=== PATIENT | male | born 1990 | race Two or more races ===

== ENCOUNTER 2019-12-15 15:31 | Emergency (ER) | payer MEDICAID, OTHER ==
[~2019-12-15] VITALS: Ht 175.3 cm; Wt 158.8 kg
[2019-12-15 15:47] VITALS: BP 141/77
[2019-12-15] MEDS ORDERED: KETOROLAC TROMETH 60MG/2ML VIAL IM ONE (16:15)
== END 2019-12-15 16:47 | disposition home or self-care (01) ==
LOC: ER 15:31
DX: M54.5 Low back pain (principal); G89.29 Other chronic pain; I10 Essential (primary) hypertension
CPT/HCPCS: 96372; 99283; J1885

== ENCOUNTER → 2019-12-23 | Emergency (ER) | payer MEDICAID ==
[~2019-12-23] VITALS: Ht 175.3 cm; Wt 149.2 kg
[~2019-12-23] MED LIST: SODIUM CHLORIDE 0.9% 1,000 ML IV ONE
[2019-12-23 18:39] LABS: Basophils # (auto) 0 10 ^3/uL (0-0.2); Basophils % (auto) 0.4 % (0.0-2.0); Eosinophils # (auto) 0 10 ^3/uL (0-0.8); Eosinophils % (auto) 0.3 % (0.0-7.0); Hematocrit 48.2 % (41.0-53.0); Hemoglobin 16.1 g/dL (13.5-17.5); Lymphocytes # (auto) 2.2 10 ^3/uL (0.4-5.4); Lymphocytes % (auto) 34.1 % (10.0-50.0); Mean Corpuscular Hgb Conc. 33.5 g/dL (32.0-36.0); Mean Corpuscular Volume 89.5 fL (80.0-100.0); Monocytes # (auto) 0.5 10 ^3/uL (0-1.3); Monocytes % (auto) 7.7 % (0.0-12.0); Neutrophils # (auto) 3.7 10 ^3/uL (1.6-8.6); Neutrophils % (auto) 57.5 % (37.0-80.0); Nucleated Red Blood Cells % 0.1 %; Platelet Count (auto) 182 10^3/uL (140-450); Red Blood Cells 5.39 10^6/uL (4.5-5.90); Red Cell Distribution Width 14.4 % (11.8-14.3); White Blood Cell 6.5 10^3/uL (4.4-10.8)
[2019-12-23 18:58] LABS: Albumin 3.1 g/dL (3.4-5.0); Anion Gap 7 (5-15); Blood Urea Nitrogen 11 mg/dL (7-18); Calcium 8.6 mg/dL (8.5-10.1); Carbon Dioxide 25 mmol/L (21-32); Chloride 103 mmol/L (98-107); Glucose 104 mg/dL (74-106); Potassium 3.9 mmol/L (3.5-5.1); Sodium 135 mmol/L (136-145)
[2019-12-23 19:00] LABS: Alanine Aminotransferase 85 U/L (16-61); Aspartate Aminotransferase 59 U/L (15-37); BUN/Creatinine Ratio 10.6; GFR African American 108 mL/min; GFR Non-African American 89 mL/min
[2019-12-23 19:04] LABS: Alkaline Phosphatase 96 U/L (45-117); Bilirubin, Total 0.6 mg/dL (0.2-1.0); Total Protein 8.3 g/dL (6.4-8.2)
[2019-12-23 20:00] VITALS: BP 114/83
== END | disposition home or self-care (01) ==
LOC: ER 17:55
DX: J02.0 Streptococcal pharyngitis (principal); J01.00 Acute maxillary sinusitis, unspecified; F17.210 Nicotine dependence, cigarettes, uncomplicated; I10 Essential (primary) hypertension
CPT/HCPCS: 36415; 71045; 80053; 82728; 83605; 84484; 85025; 87040; 87804; 87880; 93005; 99285; J7030; U0003

== ENCOUNTER 2019-12-31 18:06 | Inpatient (IN) | payer MEDICAID ==
[~2019-12-31] VITALS: Ht 175.3 cm; Wt 153.0 kg
[2019-12-31] MEDS ORDERED: SODIUM CHLORIDE 0.9% 1,000 ML IV ONE (18:51)
[2019-12-31] MEDS ORDERED: ACETAMINOPHEN 325 MG TAB PO ONE (19:00)
[2019-12-31 20:48] LABS: Hematocrit 47.8 % (41.0-53.0); Mean Corpuscular Hemoglobin 29.5 pg (28.0-32.0); Mean Corpuscular Hgb Conc. 33.5 g/dL (32.0-36.0); Mean Corpuscular Volume 88.1 fL (80.0-100.0); Platelet Count (auto) 224 10^3/uL (140-450); Red Blood Cells 5.42 10^6/uL (4.5-5.90); White Blood Cell 10.5 10^3/uL (4.4-10.8)
[2019-12-31 20:52] LABS: Band Neutrophils % (manual) 0; Basophils % (manual) 0 (0.0-2.0); Eosinophils % (manual) 0 (0-7); Metamyelocytes % 0; Myelocytes % 0; Promyelocytes % 0
[2019-12-31 21:03] LABS: Albumin 2.8 g/dL (3.4-5.0); Calcium 8.2 mg/dL (8.5-10.1); Potassium 3.9 mmol/L (3.5-5.1)
[2019-12-31 21:11] LABS: Bilirubin, Total 0.8 mg/dL (0.2-1.0); CRP High Sensitivity 2.33 mg/dL (< 0.3); Total Protein 7.8 g/dL (6.4-8.2)
[2019-12-31 21:18] LABS: Urine Bacteria NONE SEEN /hpf (None Seen); Urine Blood Negative /uL (Negative); Urine Mucus FEW (None Seen); Urine Specific Gravity 1.014 (1.001-1.035); Urine WBC 11 /hpf (0 - 3)
[2019-12-31] MEDS ORDERED: DOCUSATE SOD 100 MG CAP PO PRN (21:45)
[2019-12-31] MEDS ORDERED: ACETAMINOPHEN 500 MG TAB PO PRN (21:45)
[2019-12-31] MEDS ORDERED: HYDROcodone-ACET 5/325MG TAB PO PRN (21:45)
[2019-12-31] MEDS ORDERED: SODIUM CHLORIDE 0.9% 1,000 ML IV SCH (21:45)
[2019-12-31] MEDS ORDERED: ASCORBIC ACID 500 MG TAB PO ONE (21:45)
[2019-12-31] MEDS ORDERED: MORPHINE SULF INJ 2 MG/ML SYRINGE 1ML IV PRN (21:45)
[2019-12-31] MEDS ORDERED: ZINC SULFATE 220mg CAP or TAB PO ONE (21:45)
[2019-12-31] MEDS ORDERED: ACETAMINOPHEN 325 MG TAB PO PRN (21:45)
[2019-12-31] MEDS ORDERED: ALBUTEROL SULFATE 90 MCG MDI IN ONE (22:40)
[2019-12-31 22:48] VITALS: BP_SYST 130; BP_SYST 97; BP_DIAS 52; BP_DIAS 87
--- NOTE | 2019-12-31 22:48 | NUR ---
Telemetry admit from [facility] admitted to Telemetry unit. Patient oriented to LAZARUS SAWYER, RN primary RN, unit, room, bed, and unit policies regarding patient care and visiting hours. Patient now on continuous telemetry monitoring, tele box # 8 and telemetry reading on arrival to unit is sinus rhythm. Patient weighed by bedscale and encouraged to call if they need something. All questions and concerns addressed, patient verbalized understanding. Bed in lowest locked position, side rails up x2, call light within reach. Will round every hour and as needed and continue to monitor. COVID [address], will maintain throughout shift.
--- NOTE | 2019-12-31 23:00 | NUR ---
Patient noted to be briefly desaturating from 85%, then back to 95%. Patient placed on humidied nasal cannula at 1 liter oxygen to maintain oxygen saturation while sleeping. Will continue care.
[2019-12-31 23:13] LABS: Blast Cells 4; Lymphocytes % (manual) 48 (10.0-50.0); Monocytes % (manual) 4 (0-12); Reactive Lymphocytes 13
[2019-12-31] MEDS: DOXYCYCLINE 100MG/250ML 250 ML IV SCH (23:44)
[2019-12-31] MEDS: ALBUTEROL SULF HFA 90MCG INH 200DOSE IN SCH (23:45)
[2020-01-01] MEDS: ONDANSETRON HCL 4 MG/2 ML VIAL IV PRN ×2 (03:28→10:11)
[2020-01-01 04:00] VITALS: BP 130/78
[2020-01-01] MEDS: ALBUTEROL SULF HFA 90MCG INH 200DOSE IN SCH (07:06)
--- NOTE | 2020-01-01 07:06 | NUR ---
Respiratory note: MDI GIVEN BY RN.
--- NOTE | 2020-01-01 07:15 | NUR ---
Closing Note Patient lying in bed, awake and alert. No s/s of distress, care endorsed to dayshift RN.
[2020-01-01 08:00] VITALS: BP 130/78
--- NOTE | 2020-01-01 08:25 | NUR ---
OPENING SHIFT NOTE ASSUMED CARE OF PT. PT LAYING IN BED. NO SOB OR S/S DISTRESS NOTED. PT IS ALERT AND ORIENTED X4. COVID PRECAUTIONS IN PLACE. BED IN LOCKED POSITION. WILL CONTINUE TO MONITOR.
[2020-01-01 09:53] LABS: Hematocrit 46.1 % (41.0-53.0); Hemoglobin 15.4 g/dL (13.5-17.5); Mean Corpuscular Hemoglobin 29.5 pg (28.0-32.0); Mean Corpuscular Hgb Conc. 33.3 g/dL (32.0-36.0); Mean Corpuscular Volume 88.5 fL (80.0-100.0); Platelet Count (auto) 224 10^3/uL (140-450); Red Blood Cells 5.21 10^6/uL (4.5-5.90); Red Cell Distribution Width 14.9 % (11.8-14.3)
[2020-01-01] MEDS ORDERED: ZINC SULFATE 220mg CAP or TAB PO SCH (10:00)
[2020-01-01] MEDS ORDERED: ASCORBIC ACID 1,000 MG TAB PO SCH (10:00)
[2020-01-01] MEDS ORDERED: CHOLECALCIFEROL (VITD3) 1,000IU=25mCg TAB PO SCH (10:00)
[2020-01-01 10:01] LABS: Band Neutrophils % (manual) 0; Basophils % (manual) 0 (0.0-2.0); Metamyelocytes % 0; Myelocytes % 0; Promyelocytes % 0
[2020-01-01 10:09] LABS: Albumin 2.7 g/dL (3.4-5.0); Calcium 7.8 mg/dL (8.5-10.1); Potassium 4.1 mmol/L (3.5-5.1)
[2020-01-01] MEDS: DOXYCYCLINE 100MG/250ML 250 ML IV SCH (10:11)
[2020-01-01] MEDS: ENOXAPARIN SOD 40 MG/0.4 ML SYRINGE SC SCH (10:11)
[2020-01-01 10:13] LABS: BUN/Creatinine Ratio 11.1; Bilirubin, Total 0.7 mg/dL (0.2-1.0); Total Protein 7.6 g/dL (6.4-8.2)
[2020-01-01 11:45] LABS: Eosinophils % (manual) 1 (0-7); Lymphocytes % (manual) 36 (10.0-50.0); Monocytes % (manual) 7 (0-12); Reactive Lymphocytes 13
[2020-01-01 11:46] LABS: Blast Cells 1
--- NOTE | 2020-01-01 12:50 | NUR ---
PT TRANSFERRED TO [facility]. RN MARCOS RECEIVED PT. NO SIGNS OF DISTRESS DURING TRANSFER.
--- NOTE | 2020-01-01 12:50 | NUR ---
PATIENT BROUGHT TO ROOM VIA WHEELCHAIR FROM COVID UNIT. PATIENT ORIENTED TO ROOM, CALL LIGHT WITHIN REACH, BED IN LOCKED AND LOWEST POSITION AND 2X SIDE RAILS UP. VS 100/63, 94%, 94, 98.1, 21. NO COMPLAINTS OF PAIN OR DISCOMFORT AT THIS TIME. WILL CONTINUE TO MONITOR Q1H AND PRN
--- NOTE | 2020-01-01 13:40 | NUR ---
DR KRISHNAN BEDSIDE WITH PATIENT DISCUSSING PLAN OF CARE
[2020-01-01] MEDS ORDERED: cefTRIAXone 1GM/50ML D5W 50 ML IV ONE (13:45)
[2020-01-01] MEDS: D5W/ SOD CHL 0.9%/KCL 20MEQ 1,000 ML IV SCH (14:01)
[2020-01-01 14:02] LABS: Amphetamine Screen, Urine NEGATIVE (NEGATIVE); Barbiturate Scree,Urine NEGATIVE (NEGATIVE); Benzodiazephine Screen, Urine NEGATIVE (NEGATIVE); Cannabinoid Screen, Urine NEGATIVE (NEGATIVE); Cocaine Screen, Urine NEGATIVE (NEGATIVE); Opiate Scree,Urine NEGATIVE (NEGATIVE); Phencyclidine Screen, Urine NEGATIVE (NEGATIVE)
[2020-01-01 14:23] LABS: INR 1.19 (0.9-1.15); Partial Thromboplastin Time 29.5 sec (23.64-32.05)
[2020-01-01] MEDS: metroNIDAZOLE 500MG/100ML 100 ML IV SCH ×2 (15:42→21:34)
[2020-01-01 16:57] VITALS: BP 120/76
[2020-01-01] MEDS ORDERED: FAMOTIDINE (10MG/ML) 2ML VL IV SCH (22:00)
[2020-01-01 22:43] VITALS: BP 111/69
[2020-01-02] MEDS: D5W/ SOD CHL 0.9%/KCL 20MEQ 1,000 ML IV SCH (03:05)
[2020-01-02 05:14] VITALS: BP 121/64
[2020-01-02 06:00] LABS: Hematocrit 43.9 % (41.0-53.0); Hemoglobin 14.6 g/dL (13.5-17.5); Mean Corpuscular Hemoglobin 29.6 pg (28.0-32.0); Mean Corpuscular Hgb Conc. 33.2 g/dL (32.0-36.0); Mean Corpuscular Volume 89.1 fL (80.0-100.0); Platelet Count (auto) 222 10^3/uL (140-450); Red Blood Cells 4.93 10^6/uL (4.5-5.90); Red Cell Distribution Width 14.9 % (11.8-14.3); White Blood Cell 7.3 10^3/uL (4.4-10.8)
[2020-01-02 06:09] LABS: Band Neutrophils % (manual) 0; Basophils % (manual) 0 (0.0-2.0); Blast Cells 0; Metamyelocytes % 0; Myelocytes % 0; Promyelocytes % 0
[2020-01-02 06:32] LABS: Potassium 3.8 mmol/L (3.5-5.1)
[2020-01-02] MEDS: metroNIDAZOLE 500MG/100ML 100 ML IV SCH (06:36)
[2020-01-02 06:42] LABS: Eosinophils % (manual) 1 (0-7); Lymphocytes % (manual) 44 (10.0-50.0); Monocytes % (manual) 10 (0-12); Reactive Lymphocytes 8
[2020-01-02 06:46] LABS: Albumin 2.3 g/dL (3.4-5.0); BUN/Creatinine Ratio 8.4; Bilirubin, Total 0.7 mg/dL (0.2-1.0); Calcium 7.4 mg/dL (8.5-10.1); Total Protein 6.8 g/dL (6.4-8.2)
[2020-01-02 08:00] VITALS: BP 101/58
[2020-01-02 09:00] VITALS: BP 101/58
[2020-01-02] MEDS ORDERED: cefTRIAXone 1GM/50ML D5W 50 ML IV SCH (09:00)
[2020-01-02] MEDS: ENOXAPARIN SOD 40 MG/0.4 ML SYRINGE SC SCH (09:48)
[2020-01-02] MEDS ORDERED: FAM20T PO (09:55)
[2020-01-02] MEDS ORDERED: MET500T PO (09:55)
[2020-01-02] MEDS ORDERED: LEVO-28 PO (09:55)
[2020-01-02] MEDS ORDERED: levoFLOXacin 500 MG TAB PO SCH (10:00)
[2020-01-02] MEDS ORDERED: FAMOTIDINE 20 MG TAB PO SCH (10:00)
[2020-01-02 13:00] VITALS: BP 95/53
[2020-01-02] MEDS ORDERED: metroNIDAZOLE 500 MG TAB PO SCH (14:00)
--- NOTE | 2020-01-02 16:36 | NUR ---
INFORMED DR KRISHNAN C-DIFF CAME BACK NEGATIVE. PER DR KRISHNAN, PATIENT WILL BE DISCHARGED
[2020-01-02 16:40] VITALS: BP 95/53
--- NOTE | 2020-01-02 17:35 | NUR ---
Discharge instructions given as ordered. Encouraged to follow up with Beba Cheatham, [employer] to help with finding a PCP. Once PCP is established, patient will schedule a follow up appointment with doctor. All questions and concerns addressed. Patient verbalized understanding. Medication reconciliation form completed and copy given to patient. No home medications being held in Pharmacy, and no needed vaccines given. IV removed with catheter intact and pressure dressing applied. Telemetry unit returned to ICU. Patient walked out with all personal belongings, accompanied by staff member. No distress noted at time of departure.
[2020-01-02 17:43] VITALS: BP 116/63
== END 2020-01-02 17:35 | disposition home or self-care (01) | DRG 249 ==
LOC: ER 18:06 → TELE-EAST 18:07 → EAST 01-02 10:04
PROVIDERS: ADMIT Hospitalist; ATTEND Hospitalist
DX: K52.9 Noninfective gastroenteritis and colitis, unspecified (principal); E44.0 Moderate protein-calorie malnutrition; K76.0 Fatty (change of) liver, not elsewhere classified; J02.0 Streptococcal pharyngitis; E66.01 Morbid (severe) obesity due to excess calories; F17.210 Nicotine dependence, cigarettes, uncomplicated; I10 Essential (primary) hypertension; M19.90 Unspecified osteoarthritis, unspecified site; N39.0 Urinary tract infection, site not specified; Z03.818 Encounter for observation for suspected exposure to other biological agents ruled out; Z68.42 Body mass index [BMI] 45.0-49.9, adult
CPT/HCPCS: 36415; 71045; 74176; 80053; 80307; 81001; 82728; 83605; 83615; 83690; 83735; 85007; 85027; 85610; 85730; 86141; 87040; 87081; 87086; 87493; 94640; 96360; G0378; J0696; J2405; J3490

== ENCOUNTER 2021-07-16 20:07 | Emergency (ER) | payer MEDICAID ==
[~2021-07-16] VITALS: Ht 175.3 cm; Wt 151.0 kg
[~2021-07-16 20:07] MED LIST changes: +FAMO20TA10 PO; +LEVO-28 PO; +MET500T PO; -SODIUM CHLORIDE 0.9% 1,000 ML IV ONE
[2021-07-17] VITALS: BP 124/93
== END 2021-07-17 00:25 | disposition home or self-care (01) ==
LOC: ER 20:08
DX: U07.1 COVID-19 (principal); J18.9 Pneumonia, unspecified organism; E66.9 Obesity, unspecified; F17.210 Nicotine dependence, cigarettes, uncomplicated; Z68.42 Body mass index [BMI] 45.0-49.9, adult
CPT/HCPCS: 36415; 71045; 87426; 87804

== ENCOUNTER 2021-07-23 11:39 | Inpatient (IN) | payer MEDICAID ==
[~2021-07-23] VITALS: Ht 175.3 cm; Wt 159.1 kg
[2021-07-23] MEDS ORDERED: SODIUM CHLORIDE 0.9% 1,000 ML IV ONE (12:15)
[2021-07-23 13:43] LABS: Basophils # (auto) 0 10 ^3/uL (0-0.2); Basophils % (auto) 0.3 % (0.0-2.0); Eosinophils # (auto) 0 10 ^3/uL (0-0.8); Hematocrit 46.6 % (41.0-53.0); Hemoglobin 15.6 g/dL (13.5-17.5); Lymphocytes # (auto) 1.4 10 ^3/uL (0.4-5.4); Lymphocytes % (auto) 25.9 % (10.0-50.0); Mean Corpuscular Hemoglobin 29.4 pg (28.0-32.0); Mean Corpuscular Hgb Conc. 33.4 g/dL (32.0-36.0); Monocytes # (auto) 0.3 10 ^3/uL (0-1.3); Monocytes % (auto) 4.9 % (0.0-12.0); Neutrophils # (auto) 3.7 10 ^3/uL (1.6-8.6); Neutrophils % (auto) 68.9 % (37.0-80.0); Nucleated Red Blood Cells % 0.1 %; Red Blood Cells 5.29 10^6/uL (4.5-5.90); Red Cell Distribution Width 14.3 % (11.8-14.3); White Blood Cell 5.4 10^3/uL (4.4-10.8)
[2021-07-23 14:03] LABS: Albumin 3.3 g/dL (3.4-5.0); Calcium 7.7 mg/dL (8.5-10.1); Potassium 3.6 mmol/L (3.5-5.1)
[2021-07-23 14:11] LABS: BUN/Creatinine Ratio 13.1; Bilirubin, Total 0.5 mg/dL (0.2-1.0); CRP High Sensitivity 5.57 mg/dL (< 0.3); Total Protein 7.6 g/dL (6.4-8.2)
[2021-07-23] MEDS ORDERED: ONDANSETRON HCL 4 MG/2 ML VIAL ONE (17:12)
[2021-07-23] MEDS ORDERED: ONDANSETRON HCL 4 MG/2 ML VIAL IV ONE (17:30)
[2021-07-23] MEDS ORDERED: MORPHINE SULFATE 4 MG/ML SYR/VIAL IV PRN (20:00)
[2021-07-23] MEDS ORDERED: TEMAZEPAM 15 MG CAP PO PRN (20:00)
[2021-07-23] MEDS ORDERED: DexAMETHasone SOD PHOS 10MG/1ML VIAL INJ IV ONE (20:00)
[2021-07-23] MEDS ORDERED: NITROGLYCERIN 0.4 MG SL TAB SL PRN (20:00)
[2021-07-23] MEDS ORDERED: MORPHINE SULFATE INJECTION 2 MG/ML SYRG IV PRN (20:00)
[2021-07-23] MEDS: ACETAMINOPHEN 325 MG TAB PO PRN (21:11)
[2021-07-23] MEDS: PIPERACILLIN-TAZOB 3.375GM 100 ML IV SCH (23:12)
[2021-07-23] MEDS: ASCORBIC ACID 500 MG TAB PO SCH (23:12)
[2021-07-24 00:06] VITALS: BP 119/74
[2021-07-24 05:00] VITALS: BP 107/56
[2021-07-24] MEDS: PIPERACILLIN-TAZOB 3.375GM 100 ML IV SCH ×3 (06:24→20:48)
[2021-07-24] MEDS: HYDROcodone-ACET 5/325MG TAB PO PRN ×2 (07:21→13:32)
[2021-07-24 08:16] LABS: Basophils # (auto) 0 10 ^3/uL (0-0.2); Basophils % (auto) 0.1 % (0.0-2.0); Eosinophils # (auto) 0 10 ^3/uL (0-0.8); Hematocrit 45.5 % (41.0-53.0); Hemoglobin 15.3 g/dL (13.5-17.5); Lymphocytes # (auto) 0.9 10 ^3/uL (0.4-5.4); Lymphocytes % (auto) 18.8 % (10.0-50.0); Mean Corpuscular Hemoglobin 29.9 pg (28.0-32.0); Mean Corpuscular Hgb Conc. 33.7 g/dL (32.0-36.0); Mean Corpuscular Volume 88.7 fL (80.0-100.0); Monocytes # (auto) 0.2 10 ^3/uL (0-1.3); Monocytes % (auto) 3.6 % (0.0-12.0); Neutrophils # (auto) 3.9 10 ^3/uL (1.6-8.6); Neutrophils % (auto) 77.5 % (37.0-80.0); Red Blood Cells 5.13 10^6/uL (4.5-5.90); Red Cell Distribution Width 14.2 % (11.8-14.3)
[2021-07-24 08:37] LABS: Potassium 3.9 mmol/L (3.5-5.1)
[2021-07-24 08:52] LABS: BUN/Creatinine Ratio 15.2; Bilirubin, Total 0.5 mg/dL (0.2-1.0); Total Protein 7.3 g/dL (6.4-8.2)
[2021-07-24 09:00] VITALS: BP 98/46
[2021-07-24] MEDS: ZINC SULFATE 220mg CAP or TAB PO SCH (12:55)
[2021-07-24] MEDS: DexAMETHasone SOD PHOS 10MG/1ML VIAL INJ IV SCH (12:55)
[2021-07-24] MEDS: MULTIPLE VITAMIN TAB PO SCH (12:55)
[2021-07-24] MEDS: ENOXAPARIN SOD 40 MG/0.4 ML SYRINGE SC SCH (12:56)
[2021-07-24] MEDS: ASCORBIC ACID 500 MG TAB PO SCH ×2 (12:56→20:48)
[2021-07-24] MEDS ORDERED: REMDESIVIR PER PHARMACY 0 ML IV SCH (13:00)
[2021-07-24] MEDS ORDERED: REMDESIVIR 200 MG in NS 210ml LOADING DOSE ADULT IV ONE (15:00)
[2021-07-24 17:00] VITALS: BP 122/67
[2021-07-24 18:41] VITALS: BP 115/60
[2021-07-24 22:00] VITALS: BP 107/60
[2021-07-25] MEDS: ACETAMINOPHEN 325 MG TAB PO PRN ×3 (04:25→21:13)
[2021-07-25 05:00] VITALS: BP 114/60
[2021-07-25] MEDS: PIPERACILLIN-TAZOB 3.375GM 100 ML IV SCH ×3 (05:16→21:12)
[2021-07-25 07:05] LABS: Calcium 7.6 mg/dL (8.5-10.1); Potassium 3.3 mmol/L (3.5-5.1)
[2021-07-25 07:09] LABS: Albumin 2.6 g/dL (3.4-5.0); BUN/Creatinine Ratio 14.1
[2021-07-25 07:11] LABS: Bilirubin, Total 0.5 mg/dL (0.2-1.0); Total Protein 6.4 g/dL (6.4-8.2)
[2021-07-25 08:00] VITALS: BP 123/71
[2021-07-25 09:00] VITALS: BP 123/71
[2021-07-25] MEDS: ONDANSETRON HCL 4 MG/2 ML VIAL IV PRN (09:27)
[2021-07-25] MEDS: DexAMETHasone SOD PHOS 10MG/1ML VIAL INJ IV SCH (09:27)
[2021-07-25] MEDS: ZINC SULFATE 220mg CAP or TAB PO SCH (09:28)
[2021-07-25] MEDS: ASCORBIC ACID 500 MG TAB PO SCH ×2 (09:28→21:13)
[2021-07-25] MEDS: ENOXAPARIN SOD 40 MG/0.4 ML SYRINGE SC SCH (09:28)
[2021-07-25] MEDS: DOCUSATE SOD 100 MG CAP PO PRN (09:28)
[2021-07-25] MEDS: MULTIPLE VITAMIN TAB PO SCH (09:28)
[2021-07-25] MEDS ORDERED: oxyCODONE ER 10 MG TAB PO ONE (10:15)
[2021-07-25] MEDS ORDERED: oxyCODONE HCL 5MG TAB PO PRN (10:30)
[2021-07-25] MEDS: oxyCODONE HCL 5MG TAB PO PRN (12:35)
[2021-07-25] MEDS: REMDESIVIR 100mg 100 MG in SODIUM CHL 0.9% 230 ML IV SCH (16:10)
[2021-07-25 22:00] VITALS: BP 117/66
[2021-07-26] MEDS: PIPERACILLIN-TAZOB 3.375GM 100 ML IV SCH ×3 (05:34→22:00)
[2021-07-26 08:09] LABS: Potassium 3.5 mmol/L (3.5-5.1)
[2021-07-26 08:18] LABS: Albumin 2.7 g/dL (3.4-5.0); BUN/Creatinine Ratio 20.5; Bilirubin, Total 0.6 mg/dL (0.2-1.0); Calcium 7.8 mg/dL (8.5-10.1)
[2021-07-26 09:00] VITALS: BP 119/51
[2021-07-26] MEDS: ENOXAPARIN SOD 40 MG/0.4 ML SYRINGE SC SCH (10:15)
[2021-07-26] MEDS: DexAMETHasone SOD PHOS 10MG/1ML VIAL INJ IV SCH (10:15)
[2021-07-26] MEDS: ZINC SULFATE 220mg CAP or TAB PO SCH (10:15)
[2021-07-26] MEDS: ASCORBIC ACID 500 MG TAB PO SCH ×2 (10:16→21:09)
[2021-07-26] MEDS: MULTIPLE VITAMIN TAB PO SCH (10:16)
[2021-07-26] MEDS: oxyCODONE HCL 5MG TAB PO PRN (11:40)
[2021-07-26 13:00] VITALS: BP 107/64
[2021-07-26] MEDS: REMDESIVIR 100mg 100 MG in SODIUM CHL 0.9% 230 ML IV SCH (16:44)
[2021-07-26 17:00] VITALS: BP 122/78
[2021-07-26] MEDS: ONDANSETRON HCL 4 MG/2 ML VIAL IV PRN (21:10)
[2021-07-26 22:00] VITALS: BP 100/55
[2021-07-27 05:00] VITALS: BP 111/67
[2021-07-27] MEDS: PIPERACILLIN-TAZOB 3.375GM 100 ML IV SCH ×2 (06:14→13:42)
[2021-07-27] MEDS: ONDANSETRON HCL 4 MG/2 ML VIAL IV PRN (06:22)
[2021-07-27 08:14] LABS: Potassium 3.8 mmol/L (3.5-5.1)
[2021-07-27 08:22] LABS: Albumin 2.9 g/dL (3.4-5.0); Bilirubin, Total 0.6 mg/dL (0.2-1.0); Calcium 8.2 mg/dL (8.5-10.1)
[2021-07-27 09:00] VITALS: BP 101/73
[2021-07-27] MEDS: DexAMETHasone SOD PHOS 10MG/1ML VIAL INJ IV SCH (11:47)
[2021-07-27] MEDS: ZINC SULFATE 220mg CAP or TAB PO SCH (11:47)
[2021-07-27] MEDS: MULTIPLE VITAMIN TAB PO SCH (11:48)
[2021-07-27] MEDS: ASCORBIC ACID 500 MG TAB PO SCH ×2 (11:48→21:43)
[2021-07-27] MEDS: ENOXAPARIN SOD 40 MG/0.4 ML SYRINGE SC SCH (11:48)
[2021-07-27 13:00] VITALS: BP 117/71
[2021-07-27] MEDS: REMDESIVIR 100mg 100 MG in SODIUM CHL 0.9% 230 ML IV SCH (15:14)
[2021-07-27 17:00] VITALS: BP 110/72
[2021-07-27 22:00] VITALS: BP 109/72
[2021-07-28 05:00] VITALS: BP 119/71
[2021-07-28] MEDS: DOCUSATE SOD 100 MG CAP PO PRN (06:22)
[2021-07-28 07:18] LABS: Potassium 3.9 mmol/L (3.5-5.1)
[2021-07-28 07:24] LABS: Albumin 2.7 g/dL (3.4-5.0); BUN/Creatinine Ratio 27.9; Bilirubin, Total 0.7 mg/dL (0.2-1.0); Calcium 8.1 mg/dL (8.5-10.1); Total Protein 6.8 g/dL (6.4-8.2)
[2021-07-28] MEDS: ONDANSETRON HCL 4 MG/2 ML VIAL IV PRN (08:58)
[2021-07-28 09:00] VITALS: BP 132/71
[2021-07-28] MEDS: DexAMETHasone SOD PHOS 10MG/1ML VIAL INJ IV SCH (09:39)
[2021-07-28] MEDS: ENOXAPARIN SOD 40 MG/0.4 ML SYRINGE SC SCH (09:47)
[2021-07-28] MEDS: MULTIPLE VITAMIN TAB PO SCH (09:57)
[2021-07-28] MEDS: ZINC SULFATE 220mg CAP or TAB PO SCH (09:57)
[2021-07-28] MEDS: ASCORBIC ACID 500 MG TAB PO SCH (09:58)
[2021-07-28 13:00] VITALS: BP 123/75
[2021-07-28] MEDS: REMDESIVIR 100mg 100 MG in SODIUM CHL 0.9% 230 ML IV SCH (14:31)
[2021-07-28 17:00] VITALS: BP 103/64
== END 2021-07-28 21:00 | disposition home or self-care (01) | DRG 137 ==
LOC: ER 11:39 → TELE 19:47 → TELE-EAST 23:39
PROVIDERS: ADMIT Internal Medicine; ATTEND Internal Medicine
PROC: XW033E5 Introduction of Remdesivir Anti-infective into Peripheral Vein, Percutaneous Approach, New Technology Group 5 (ICD-10-PCS; principal; 2021-07-24)
DX: U07.1 COVID-19 (principal); J96.01 Acute respiratory failure with hypoxia; J12.82 Pneumonia due to coronavirus disease 2019; K21.9 Gastro-esophageal reflux disease without esophagitis; E66.01 Morbid (severe) obesity due to excess calories; Z68.41 Body mass index [BMI] 40.0-44.9, adult; F17.210 Nicotine dependence, cigarettes, uncomplicated; I10 Essential (primary) hypertension; R74.01 Elevation of levels of liver transaminase levels
CPT/HCPCS: 36415; 36600; 71045; 80053; 82728; 82805; 85025; 85379; 86141; 87426; 96361; 96374; 96375; G0378; J1100; J2405; J2543